=== PATIENT | female | born 1980 | race Caucasian/White ===

== ENCOUNTER 2020-09-23 11:30 | Emergency (ER) | payer OTHER ==
[~2020-09-23] VITALS: Ht 154.9 cm; Wt 73.0 kg
[2020-09-23 12:13] VITALS: Ht 154.9 cm; Wt 73.0 kg
[2020-09-23 13:17] VITALS: BP 114/70
== END 2020-09-23 13:17 | disposition home or self-care (01) ==
LOC: ED 11:30
DX: H60.501 Unspecified acute noninfective otitis externa, right ear (principal); H70.001 Acute mastoiditis without complications, right ear; J45.909 Unspecified asthma, uncomplicated; F17.200 Nicotine dependence, unspecified, uncomplicated; Z88.1 Allergy status to other antibiotic agents
CPT/HCPCS: 99406